=== PATIENT | female | born 1985 ===

== ENCOUNTER 2025-02-18 12:16 | Inpatient (IN) | payer OTHER, SELFPAY ==
--- NOTE | 2025-02-18 12:42 | ED.GENADULT ---
HPI - General Adult General Chief complaint: Psychiatric Symptoms Stated complaint: SI DEPRESSION (PSYCHIATRIC OFFICE) Time Seen by Provider: 02/18/25 12:39 Source: patient and EMS Mode of arrival: EMS Limitations: no limitations History of Present Illness ED Provider: Lou Morales PA-C HPI narrative: Patient is a 39 year old assigned female at with a history of depression presenting to the emergency department today with suicidal ideation. Patient states that she has felt more suicidal as of lately with no plan. Patient denies any dizziness, lightheadedness, abdominal pain, nausea, vomiting, fever, chills, blurry vision, double vision, loss of vision, chest pain, difficulty breathing, shortness of breath, back pain, night sweats, pain with urination, increased urinary frequency, increased urinary urgency, blood in her urine or stool, syncope or a near syncopal episode, recent trauma or falls, bowel incontinence, bladder incontinence, or any other complaints at this time. Relieving factors: none Exacerbating factors: none Associated symptoms: denies other symptoms Treatments prior to arrival: none Related Data Home Medications ?Medication ?Instructions ?Recorded ?Confirmed alprazolam 0.5 mg tablet 0.5 mg PO DAILY PRN Anxiety 02/18/25 02/18/25 fluoxetine 20 mg capsule 80 mg PO DAILY 02/18/25 02/18/25 spironolactone 100 mg tablet 100 mg PO DAILY 02/18/25 02/18/25 Allergies Allergy/AdvReac Type Severity Reaction Status Date / Time No Known Allergies Allergy Verified 02/18/25 12:56 Review of Systems Constitutional: Constitutional: Reports no additional constitutional complaints, Denies chills, Denies fever(s) and Denies night sweats Eyes: Eyes: Reports no additional eye complaints, Denies blurry vision, Denies change in vision, Denies diplopia, Denies eye discharge, Denies loss of vision and Denies eye pain ENT: Denies dizziness Cardiovascular: Cardiovascular: Reports no additional cardiovascular complaints, Denies chest pain, Denies lightheadedness, Denies Loss of Consciousness and Denies dyspnea Respiratory: Respiratory: Reports no additional respiratory complaints and Denies dyspnea Gastrointestinal: Gastrointestinal: Reports no additional gastrointestinal complaints, Denies abdominal pain, Denies melena, Denies hematochezia, Denies change in bowel habits and Denies change in stool character Genitourinary: Genitourinary: Denies hematuria, Denies urinary frequency, Denies dysuria, Denies urinary incontinence, Denies urinary hesitancy and Denies urinary urgency Musculoskeletal: Musculoskeletal: Reports no additional musculoskeletal complaints, Denies numbness and Denies tingling Neurologic: Denies dizziness, Denies loss of vision, Denies numbness and Denies tingling Psychiatric: Psychiatric: Reports no additional psychiatric complaints, Denies homicidal ideation and Reports suicidal ideation Endocrine: Endocrine: Reports no additional endocrine complaints Hematologic/Lymphatic: Hematologic/Lymphatic: Reports no additional hematologic/lymphatic complaints Allergic/Immunologic: Allergic/Immunologic: Reports no additional allergic/immunologic complaints PMFSH Past Medical History Attestation statement: The following information was validated with the patient. Source: old records reviewed and nursing notes reviewed Social History Social History Household Members: Spouse and Children Household Members Other:: Daughter Housing: House Do you presently have visiting nurse or other home services: No Alcohol intake: current Alcohol intake frequency: a few times a month Alcohol type: beer and hard liquor Patient Tobacco Use Status: Never used Tobacco Smoked in Last 30 Days: No Use of substances other than those prescribed or required for medical reasons: No Currently Displaying Signs/Symptoms of Drug Intoxication Withdrawal: No Have you been hit, kicked, punched, or otherwise hurt by someone within the past year? If so, by whom?: No Do you feel safe in your current relationship?: Yes Is there a partner from a previous relationship who is making you feel unsafe now?: No Are you made to feel afraid or neglected: No Advance Directives: No Advance Directives Information Provided: Yes Do you have thoughts of harming others: None Do you have a plan to hurt others: No Plan Recently lost weight without trying: No Eating poorly because of decreased appetite: No Nutrition Risks: No Nutritional Risk Patient : No : No Poor oral hygiene: No Physical Exam ED Vital Signs: Vital Signs - 24 hr 02/18/25 12:43 02/18/25 12:57 Temperature 98.4 F Pulse Rate 66 Respiratory Rate 16 16 Blood Pressure 117/69 Pulse Oximetry 99 Oxygen Delivery Method Room Air BMI result Body Mass Index 22.6 Const General: cooperative, no acute distress, alert and awake Nutritional Appearance: well nourished Orientation/consciousness: patient oriented x3 HENMT Head: Yes normal to inspection and Yes atraumatic Ears: hearing grossly normal bilaterally and external ears normal General nose exam: Normal external nose present, no nasal discharge noted and no epistaxis Face and sinus: Yes normal facial exam, No abrasion and No laceration Mouth: Normal oral and palatal mucosa present, no drooling and no muffled voice Eyes General: appearance normal, both eyes and all related structures Periorbital: periorbital findings normal Eyelids: Yes eyelids normal Conjunctivae: conjunctivae normal Pupils: Equal, round and reactive pupils present EOM: EOMs intact bilaterally Neck Neck: Yes normal visual inspection, Yes full ROM and Yes no lymphadenopathy Resp Effort & Inspection: normal respiratory effort and able to speak in complete sentences Neuro General: patient oriented x3, moves all extremities and CN's II-XI intact bilaterally Cranial nerves: Yes Equal, round and reactive pupils present Cognition (Neuro): normal cognition Extrem General: Yes normal to inspection, Yes full ROM and Yes capillary refill normal Psych Appearance: grossly normal Mental Status: mental status grossly normal Affect: normal affect Attitude: Guarded attititude/behavior present Thought content: Suicidality present Medications Administered Generic Name Dose Route Start Last Admin Trade Name Freq PRN Reason Stop Dose Admin Alprazolam 0.5 mg 02/19/25 12:35 02/19/25 21:23 Alprazolam 0.5 Mg Tablet PO 0.5 mg BID PRN Administration Anxiety Fluoxetine HCl 80 mg 02/19/25 09:00 02/21/25 08:33 Fluoxetine Hcl 20 Mg Capsule PO 80 mg DAILY BLAKE Administration Lamotrigine 25 mg 02/19/25 12:35 02/21/25 08:33 Lamotrigine 25 Mg Tablet PO 25 mg DAILY BLAKE Administration Spironolactone 100 mg 02/19/25 09:00 02/21/25 08:32 Spironolactone 25 Mg Tablet PO 100 mg DAILY BLAKE Administration Protocol Trazodone HCl 50 mg 02/18/25 20:02 02/20/25 23:30 Trazodone Hcl 50 Mg Tablet PO 50 mg BEDTIME [id number] PRN Administration Insomnia Discontinued Medications Generic Name Dose Route Start Last Admin Trade Name Freq PRN Reason Stop Dose Admin Alprazolam 0.5 mg 02/18/25 17:44 02/19/25 05:48 Alprazolam 0.5 Mg Tablet PO 0.5 mg DAILY PRN Administration Anxiety Lorazepam 1 mg 02/18/25 17:44 02/18/25 17:48 Lorazepam 1 Mg Tablet PO 02/18/25 17:45 1 mg ONCE ONE Administration Medical Decision Making Medical Decision Making [facility] Narrative: Patient is a 39 year old assigned female at with a history of depression presenting to the emergency department today with suicidal ideation. Patient's physical exam was as noted in the physical exam portion of this note. Patient's blood work was unremarkable. I explained my physical exam findings as well as all test results to the patient. I answered all questions asked by the patient. Patient remains in observation pending CARE team evaluation. Patient's disposition will be determined after CARE team evaluation. Differential Diagnosis Differential Diagnoses: The differential diagnosis associated with the presentation includes Depression suicidal ideation Admission/Observation Consideration of admission/observation: Escalation of care including admission/observation considered Patient's disposition will be determined after CARE team evaluation. Lab Data [facility] Lab Attestation statement: I reviewed the patient's lab results. My interpretation of these results are in the MDM Rationale portion of this note. 02/18/25 12:58 02/20/25 07:08 Labs: Lab Results 02/18/25 02/18/25 02/18/25 Range/Units 12:58 14:17 14:18 WBC 6.0 (4.8-10.8) X10*3/uL RBC 4.03 L (4.20-5.50) X10*6/uL Hgb 12.7 (12.0-16.0) g/dl Hct 36.7 L (37.0-47.0) % MCV 91.1 (80.0-98.0) fL MCH 31.5 (27.0-33.0) pg MCHC 34.6 (31.0-35.0) g/dl RDW 13.0 (11.0-16.0) % Plt Count 266 (160-400) X10*3/uL MPV 9.3 L (9.4-12.3) fL Immature Gran % (Auto) 0.5 H (0.0-0.4) % Neut % (Auto) 77.4 H (45-73) % Lymph % (Auto) 16.1 L (20-40) % [place] % (Auto) 5.5 (2-11) % Eos % (Auto) 0.0 (0-4) % Baso % (Auto) 0.5 (0-2) % Lymph # (Auto) 1.0 L (1.2-4.9) X10*3/uL [place] # (Auto) 0.3 (0.1-1.2) X10*3/uL Eos # (Auto) 0.0 (0.0-0.4) X10*3/uL Baso # (Auto) 0.0 (0.0-0.2) X10*3/uL Abs Immat Gran (auto) 0.03 (0.00-0.03) X10*3/uL Absolute Neuts (auto) 4.7 (2.0-8.3) x10*3/uL Absolute Nucleated RBC 0.000 (0.0-0.012) X10*3/uL Nucleated RBC % (auto) 0.0 (0.0-0.2) /100WBC Sodium 138 (135-145) mmol/L Potassium 4.1 (3.3-5.1) mmol/L Chloride 105 (96-108) mmol/L Carbon Dioxide 26 (22-29) mmol/L Anion Gap 11 L (12-20) BUN 8 L (9-16) mg/dL Creatinine 0.71 (0.5-1.4) mg/dL Estim Creat Clear Calc 104.5 Estimated GFR > 60 Random Glucose 109 (60-115) mg/dL Calcium 9.5 (8.4-10.2) mg/dL Total Bilirubin 0.7 (0.0-1.0) mg/dL AST 25 (5-31) U/L ALT 34 H (0-31) U/L Alkaline Phosphatase 57 (39-117) U/L Total Protein 7.1 (6.5-8.0) g/dL Albumin 4.6 (3.5-5.0) g/dL Urine Color Yellow Urine Appearance Clear Urine pH >= 9.0 (5.0-9.0) Ur Specific [place] 1.010 (1.005-1.025) Urine Protein Negative (Neg-Trace) mg/dL Urine Glucose (UA) Negative (Negative) mg/dL Urine Ketones Negative (Negative) mg/dL Urine Blood Negative (Negative) Urine Nitrite Negative (Negative) Ur Leukocyte Esterase Large (3+) H (Negative) Urine RBC 0-2 (0-2) /HPF Urine WBC 6-10 H (0-5) /HPF Ur Squamous Epith Cells 6-10 (0-2) /HPF Urine Bacteria 3+ (None Seen) Hyaline Casts 0-2 (0-2) /LPF Urine Test NEGATIVE (NEGATIVE) Urine Opiates Screen Not Detected (Not Detect) Ur Buprenorphine Scrn Not Detected (Not Detect) ng/mL Ur Oxycodone Screen Not Detected (Not Detect) ng/mL Urine Methadone Screen Not Detected (Not Detect) ng/mL Urine Fentanyl Screen Not Detected (Not Detect) Ur Barbiturates Screen Not Detected (Not Detect) Ur Phencyclidine Scrn Not Detected (Not Detect) Ur Amphetamines Screen Not Detected (Not Detect) U Benzodiazepines Scrn Not Detected (Not Detect) Urine Cocaine Screen Not Detected (Not Detect) U Marijuana (THC) Screen Not Detected (Not Detect) Ethyl Alcohol < 10 mg/dL Independent Historian Clinical information obtained from an independent historian. History obtained from or confirmed by: EMS (EMS provided additional history and confirmed the history provided by the patient. ) Discharge Plan Discharge Clinical Impression: Suicidal ideation Patient Disposition: Admitted As Inpatient Interventions: Admission Worksheet (ED) Last Done: 02/18/25 20:28 Discharge Date/Time: 02/18/25 21:33
[2025-02-18 12:43] VITALS: BP 116/78; BP 117/69; PULSE 66; PULSE 82; RESP 16; TEMP 36.9; O2SAT 100; O2SAT 99; BMI 22.6
[2025-02-18 12:57] VITALS: RESP 16
--- NOTE | 2025-02-18 13:00 | PC.NURSE ---
Mirella presents to the ED today from her providers office (Tierney Piña MD) after reporting increasing suicidal ideation over the past few months, particularly severe the past week. Pt reports that over the past few months she has been having increasing depressive episodes that have now led to suicidal ideation without a plan. Pt reports that she went out drinking socially with friends on Friday night and on she had severe suicidal and negative thoughts people will be better off if I am not here I am a burden to everyone . Pt denies having a plan to harm herself and denies a history of suicide attempts. 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 Pt reports she has minimal support in the community, citing that when she reached out to her father for help he stated that he was unavailable as he was playing golf today. Her provider also shared with this RN that the patient's mother also stated that she could not help her (the patient) as she was having dinner with her sister and had prior plans. Pt does have support from her and cites him as a good person to lean on in times of need although she feels bad placing a strain on him. Pt denies drug use, endorses recent alcohol binges which seem to trigger worsening suicidal thoughts. Pt is calm and cooperative, tearful at times. Aware of plan of care for medical clearance and CARE team evaluation
[2025-02-18 13:04] LABS: MANUAL DIFF FLAG NO
[2025-02-18 13:05] LABS: Hematocrit 36.7 % (37.0-47.0); Hemoglobin 12.7 g/dl (12.0-16.0); Imm Gran Abs Auto 0.03 X10*3/uL (0.00-0.03); Imm Gran Pct Auto 0.5 % (0.0-0.4); Lymphocytes Absolute Auto 1.0 X10*3/uL (1.2-4.9); Mean Corpuscular HGB Conc 34.6 g/dl (31.0-35.0); Mean Corpuscular Hemoglobin 31.5 pg (27.0-33.0); Mean Corpuscular Volume 91.1 fL (80.0-98.0); NRBC Abs Auto 0.000 X10*3/uL (0.0-0.012); NRBC Pct Auto 0.0 /100WBC (0.0-0.2); Platelet Count 266 X10*3/uL (160-400); Red Blood Count 4.03 X10*6/uL (4.20-5.50); White Blood Count 6.0 X10*3/uL (4.8-10.8)
--- NOTE | 2025-02-18 13:19 | MHC.EDTECH ---
Urine cup at bedside, patient aware that sample is needed. Patient oriented to the pod bathroom location, unable to provide sample at this time.
[2025-02-18 13:25] LABS: Alanine Aminotransferase 34 U/L (0-31); Albumin Level 4.6 g/dL (3.5-5.0); Alkaline Phosphatase 57 U/L (39-117); Anion Gap 11 (12-20); Aspartate Amino Transferase 25 U/L (5-31); Blood Urea Nitrogen 8 mg/dL (9-16); Calcium 9.5 mg/dL (8.4-10.2); Carbon Dioxide 26 mmol/L (22-29); Chloride 105 mmol/L (96-108); Creatinine Clr Calc Pharmacy 104.5; Estimated Glomerular Filt Rate > 60; Potassium 4.1 mmol/L (3.3-5.1); Sodium 138 mmol/L (135-145); Total Protein 7.1 g/dL (6.5-8.0)
[2025-02-18 14:36] LABS: Appearance Urine Clear; Glucose Urine UA Negative (Negative); PH >= 9.0 (5.0-9.0); Specific Gravity - Urine 1.010 (1.005-1.025); UMIC TRIGGER UACC YES
[2025-02-18 14:37] LABS: UPreg QC Valid YES
[2025-02-18 14:41] LABS: UACC Culture Trigger YES
[2025-02-18 14:44] LABS: Cannabinoid Screen Urine Not Detected (Not Detect)
--- OUTSIDE RECORDS SUMMARY | 2025-02-18 14:58 | XMS_ITS | Data Portability ---
Author Organization [facility], Main Office Address [address] [facility] [address] [place] [address] Care Team Providers Care Fisher Lampara Net Name Role Phone GWEN CAIN Primary Care Provider DENICE BANKS Senior Marketing Data Analyst KARINA HANSON [employer]mer [phone] ANN URENA Psychiatrist Assessment Encounter Date Assessment Date Assessment LastModified by Organization Details LastModified Time 04/25/2023 04/25/2023 This service was provided using telemedicine. Patient consented to video & audio visit Patient was located in the [facility]. Provider was located in the office. No other persons participated in the telemedicine visit except for the patient unless otherwise indicated here. Total time of visit was 10 minutes. [email or web address] Not available 04/28/2023 14:54:12 01/12/2024 01/12/2024 This service was provided using telemedicine. Patient consented to video & audio visit Patient was located in the [facility]. Provider was located in the office. No other persons participated in the telemedicine visit except for the patient unless otherwise indicated here. Total time of visit was 25 minutes. Not available 01/12/2024 10:38:12 07/26/2024 07/26/2024 This service was provided using telemedicine. Patient consented to video & audio visit Patient was located in the [facility]. Provider was located in the office. No other persons participated in the telemedicine visit except for the patient unless otherwise indicated here. Total time of visit was 22 minutes. Not available 07/26/2024 15:10:36 Plan of Treatment Reminders Order Date Submit Date Provider Last Modified By Organization Details Last Modified Time Details Appointments None recorded. Lab urinalysis complete, reflex culture 2023 [email or web address] 1 [facility], [address], [place], [address], 11:32:05 lipid panel, serum 2023 JULIO C [facility] (Centralized Electronic Ordering - All Locations), Patient Can Go To The Location Of Their Choice, 06:08:39 CMP, serum or plasma 2023 JULIO C [facility] (Centralized Electronic Ordering - All Locations), Patient Can Go To The Location Of Their Choice, 06:08:38 CBC w/ auto diff 2023 JULIO C [facility] (Centralized Electronic Ordering - All Locations), Patient Can Go To The Location Of Their Choice, 06:08:37 TSH, ultra-sensi tive, serum 2023 JULIO C [facility] (Centralized Electronic Ordering - All Locations), Patient Can Go To The Location Of Their Choice, 06:08:40 vitamin D, 25-hydroxy, total, serum 2023 JULIO C [facility] (Centralized Electronic Ordering - All Locations), Patient Can Go To The Location Of Their Choice, 06:08:39 Referral gastroenter ologist referral - IBS-C 2023 024 [email or web address] Virginia White MD, [address] [facility] [facility] [address], [place], [address], 10:34:51 Procedures None recorded. Surgeries None recorded. Imaging None recorded. Medication Orders Macrobid 100 mg capsule 2023 024 [facility][id number], [address] [facility], [place], [place], [id number], 12/02/202 4 15:11:10 Pyridium 200 mg tablet 2023 024 [facility] #[id number], [address] [place], [place], [id number], 4 15:11:24 alprazolam 0.5 mg tablet 2023 024 [facility] #26056, [address] [place], [place], [id number], 4 10:40:05 doxycycline hyclate 100 mg capsule 2022 023 [facility], [address] [place], [place], [id number], 3 12:36:30 Patient TargetsNo targets recorded. Patient Instructions Encounter Date Encounter Id Patient Instructions Last Modified By Organization Details Last Modified Time 03/26/2023 [id number] depression treatment: care instructions Not available 03/26/2023 10:20:07 anxiety disorder: care instructions Not available 03/26/2023 10:19:58 04/25/2023 [id number] Acute Sinusitis: Care Instructions [email or web address] Not available 04/25/2023 16:02:28 01/12/2024 [id number] anxiety disorder: care instructions Not available 01/12/2024 10:39:51 05/24/2024 [id number] high cholesterol: care instructions Not available 05/24/2024 09:54:03 07/26/2024 [id number] Urinary Tract Infection (UTI) in Women: Care Instructions Not available 07/26/2024 15:11:02 Reason for Referral Doctor Assistant Referral for Irritable bowel syndrome characterized by constipation IBS-C Referring Physician: Gwen Cain, Internal Medicine, Encounter Date: 05/24/2024 Results Created Date Observation Date Name Description Value Unit Range Abnormal Flag Note LastModifiedBy Organization Detail LastModifiedTime 08/11/20 24 08/11/2024 CBC WITH DIFFE RENTI AL/PL ATELE T WBC 7.7 x10e3 /uL 3.4-10 .8 normal Not Available [facility] ([facility]) [address] [place], [address], 08/12/2024 06:08:37 08/11/20 24 08/11/2024 CBC WITH DIFFE RENTI AL/PL ATELE T RBC 4.19 x10e6 /uL 3.77-5 .28 normal Not Available [facility] ([facility]) [address] [place], [address], 08/12/2024 06:08:37 08/11/20 24 08/11/2024 CBC WITH DIFFE RENTI AL/PL ATELE T hemoglobin 13.5 g/dL 11.1-1 5.9 normal Not Available [facility] ([facility]) [address] [place], [address], 08/12/2024 06:08:37 08/11/20 24 08/11/2024 CBC WITH DIFFE RENTI AL/PL ATELE T hematocrit 40.3 % 34.0-4 6.6 normal Not Available [facility] ([facility]) [address] [place], [address], 08/12/2024 06:08:37 08/11/20 24 08/11/2024 CBC WITH DIFFE RENTI AL/PL ATELE T MCV 96 fL 79-97 normal Not Available [facility] ([facility]) [address] [place], [address], 08/12/2024 06:08:37 08/11/20 24 08/11/2024 CBC WITH DIFFE RENTI AL/PL ATELE T MCH 32.2 pg 26.6-3 3.0 normal Not Available [facility] ([facility]) [address] [place] [address], [address], 08/12/2024 06:08:37 08/11/20 24 08/11/2024 CBC WITH DIFFE RENTI AL/PL ATELE T MCHC 33.5 g/dL 31.5-3 5.7 normal Not Available [facility] ([facility]) [address] [place], [address], 08/12/2024 06:08:37 08/11/20 24 08/11/2024 CBC WITH DIFFE RENTI AL/PL ATELE T RDW 12.1 % 11.7-1 5.4 Not Available [facility] ([facility]) [address] [facility], [place], [address], 08/12/2024 06:08:37 08/11/20 24 08/11/2024 CBC WITH DIFFE RENTI AL/PL ATELE T platelets 275 x10e3 /uL 150-45 0 normal Not Available [facility] ([facility]) [address] [place], [address], 08/12/2024 06:08:37 08/11/20 24 08/11/2024 CBC WITH DIFFE RENTI AL/PL ATELE T neutrophils 74 % not estab. normal Not Available [facility] ([facility]) [address] [facility], [place], [address], 08/12/2024 06:08:37 08/11/20 24 08/11/2024 CBC WITH DIFFE RENTI AL/PL ATELE T lymphs 17 % not estab. normal Not Available [facility] ([facility]) [address] [place], [address], 08/12/2024 06:08:37 08/11/20 24 08/11/2024 CBC WITH DIFFE RENTI AL/PL ATELE T monocytes 7 % not estab. normal Not Available [facility] ([facility]) [address] [place], [address], 08/12/2024 06:08:37 08/11/20 24 08/11/2024 CBC WITH DIFFE RENTI AL/PL ATELE T eos 1 % not estab. normal Not Available [facility] ([facility]) [address] [place], [address], 08/12/2024 06:08:37 08/11/20 24 08/11/2024 CBC WITH DIFFE RENTI AL/PL ATELE T basos 1 % not estab. normal Not Available [facility] ([facility]) [address] [facility], [place], [address], 08/12/2024 06:08:37 08/11/20 24 08/11/2024 CBC WITH DIFFE RENTI AL/PL ATELE T immature cells HEEL SLUGGER Not Available [facility] ([facility]) [address] [place], [address], 08/12/2024 06:08:37 08/11/20 24 08/11/2024 CBC WITH DIFFE RENTI AL/PL ATELE T neutrophils (absolute) 5.7 x10e3 /uL 1.4-7. 0 normal Not Available [facility] ([facility]) [address] [place], [address], 08/12/2024 06:08:37 08/11/20 24 08/11/2024 CBC WITH DIFFE RENTI AL/PL ATELE T lymphs (absolute) 1.3 x10e3 /uL 0.7-3. 1 normal Not Available [facility] ([facility]) [address] [place], [address], 08/12/2024 06:08:37 08/11/20 24 08/11/2024 CBC WITH DIFFE RENTI AL/PL ATELE T monocytes(ab solute) 0.6 x10e3 /uL 0.1-0. 9 normal Not Available [facility] ([facility]) [address] [place], [address], 08/12/2024 06:08:37 08/11/20 24 08/11/2024 CBC WITH DIFFE RENTI AL/PL ATELE T eos (absolute) 0.0 x10e3 /uL 0.0-0. 4 normal Not Available [facility] ([facility]) [address] [facility], [place], [address], 08/12/2024 06:08:37 08/11/20 24 08/11/2024 CBC WITH DIFFE RENTI AL/PL ATELE T baso (absolute) 0.0 x10e3 /uL 0.0-0. 2 normal Not Available [facility] ([facility]) [address] [facility], [place], [address], 08/12/2024 06:08:37 08/11/20 24 08/11/2024 CBC WITH DIFFE RENTI AL/PL ATELE T immature granulocytes 0 % not estab. Not Available [facility] ([facility]) [address] [facility], [place], [address], 08/12/2024 06:08:37 08/11/20 24 08/11/2024 CBC WITH DIFFE RENTI AL/PL ATELE T immature grans (abs) 0.0 x10e3 /uL 0.0-0. 1 Not Available [facility] ([facility]) [address] [place], [address], 08/12/2024 06:08:37 08/11/20 24 08/11/2024 CBC WITH DIFFE RENTI AL/PL ATELE T NRBC HEEL SLUGGER Not Available [facility] ([facility]) [address] [place], [address], 08/12/2024 06:08:37 08/11/20 24 08/11/2024 CBC WITH DIFFE RENTI AL/PL ATELE T hematology comments: HEEL SLUGGER Not Available [facility] ([facility]) [address] [place], [address], 08/12/2024 06:08:37 08/11/20 24 08/12/2024 COMP. METAB OLIC PANEL (14) glucose 98 mg/dL 70-99 normal Not Available [facility] ([facility]) [address], [place], [address], 08/12/2024 06:08:38 08/11/20 24 08/12/2024 COMP. METAB OLIC PANEL (14) BUN 11 mg/dL 6-20 normal Not Available [facility] ([facility]) [address] [place], [address], 08/12/2024 06:08:38 08/11/20 24 08/12/2024 COMP. METAB OLIC PANEL (14) creatinine 0.82 mg/dL 0.57-1 .00 normal Not Available [facility] ([facility]) [address] [place], [address], 08/12/2024 06:08:38 08/11/20 24 08/12/2024 COMP. METAB OLIC PANEL (14) eGFR 94 mL/mi n/1.7 3 >59 normal Not Available [facility] ([facility]) [address], [place], [address], 08/12/2024 06:08:38 08/11/20 24 08/12/2024 COMP. METAB OLIC PANEL (14) BUN/creatini ne ratio 13 9-23 normal Not Available [facility] ([facility]) [address] [facility] [place] [place], [address], 08/12/2024 06:08:38 08/11/20 24 08/12/2024 COMP. METAB OLIC PANEL (14) sodium 138 mmol/ L 134-14 4 normal Not Available [facility] ([facility]) [address] [facility] [place] [place], [address], 08/12/2024 06:08:38 08/11/20 24 08/12/2024 COMP. METAB OLIC PANEL (14) potassium 4.1 mmol/ L 3.5-5. 2 normal Not Available [facility] ([facility]) [address] [place], [address], 08/12/2024 06:08:38 08/11/20 24 08/12/2024 COMP. METAB OLIC PANEL (14) chloride 101 mmol/ L 96-106 normal Not Available [facility] ([facility]) [address] [place], [address], 08/12/2024 06:08:38 08/11/20 24 08/12/2024 COMP. METAB OLIC PANEL (14) carbon dioxide, total 24 mmol/ L 20-29 normal Not Available [facility] ([facility]) [address] [place], [address], 08/12/2024 06:08:38 08/11/20 24 08/12/2024 COMP. METAB OLIC PANEL (14) calcium 9.4 mg/dL 8.7-10 .2 normal Not Available [facility] ([facility] [address] [facility] [place], [address], 08/12/2024 06:08:38 08/11/20 24 08/12/2024 COMP. METAB OLIC PANEL (14) protein, total 7.2 g/dL 6.0-8. 5 normal Not Available [facility] ([facility]) [address] [facility] [place] [place], [address], 08/12/2024 06:08:38 08/11/20 24 08/12/2024 COMP. METAB OLIC PANEL (14) albumin 4.7 g/dL 3.9-4. 9 normal Not Available [facility] ([facility] [address] [facility] [place], [address], 08/12/2024 06:08:38 08/11/20 24 08/12/2024 COMP. METAB OLIC PANEL (14) globulin, total 2.5 g/dL 1.5-4. 5 Not Available [facility] ([facility]) [address] [facility] [place] [place], [address], 08/12/2024 06:08:38 08/11/20 24 08/12/2024 COMP. METAB OLIC PANEL (14) bilirubin, total 0.3 mg/dL 0.0-1. 2 normal Not Available [facility] ([facility]) [address] [place], [address], 08/12/2024 06:08:38 08/11/20 24 08/12/2024 COMP. METAB OLIC PANEL (14) alkaline phosphatase 74 IU/L 44-121 normal Not Available [facility] ([facility]) [address] [place], [address], 08/12/2024 06:08:38 08/11/20 24 08/12/2024 COMP. METAB OLIC PANEL (14) AST (SGOT) 19 IU/L 0-40 normal Not Available [facility] ([facility]) [address] [place], [address], 08/12/2024 06:08:38 08/11/20 24 08/12/2024 COMP. METAB OLIC PANEL (14) ALT (SGPT) 24 IU/L 0-32 normal Not Available [facility] ([facility]) [address] [place], [address], 08/12/2024 06:08:38 08/11/20 24 08/12/2024 LIPID PANEL cholesterol, total 216 mg/dL 100-19 9 above high normal Not Available [facility] ([facility]) [address] [place], [address], 08/12/2024 06:08:39 08/11/20 24 08/12/2024 LIPID PANEL triglyceride s 41 mg/dL 0-149 normal Not Available [facility] ([facility]) [address] [place], [address], 08/12/2024 06:08:39 08/11/20 24 08/12/2024 LIPID PANEL HDL cholesterol 89 mg/dL >39 normal Not Available [facility] ([facility]) [address] [facility], [place], [address], 08/12/2024 06:08:39 08/11/20 24 08/12/2024 LIPID PANEL VLDL cholesterol ethan 7 mg/dL 5-40 Not Available [facility] ([facility]) [address] [facility], [place], [address], 08/12/2024 06:08:39 08/11/20 24 08/12/2024 LIPID PANEL LDL chol calc ([facility]) 120 mg/dL 0-99 above high normal Not Available [facility] ([facility]) [address] [facility], [place], [address], 08/12/2024 06:08:39 08/11/20 24 08/12/2024 LIPID PANEL LDL calc comment: HEEL SLUGGER Not Available [facility] ([facility]) [address] [facility], [place], [address], 08/12/2024 06:08:39 08/11/20 24 08/12/2024 VITAM IN D, 25-HY DROXY vitamin D, 25-hydroxy 26.3 NG/mL 30.0-1 00.0 below low normal Vitam in D defic iency has been defin ed by the Insti tute of Medic ine and an Endoc rine Socie ty pract ice guide line as a level of serum 25-OH vitam in D less than 20 ng/mL (1,2) . The Endoc rine Socie ty went [facility] er defin e vitam in D insuf ficie ncy as a level betwe en 21 and 29 ng/mL (2). 1. IOM (Inst itute of Medic ine). 2009. Dieta ry refer ence intcleopatra es for calci um and D. Zuleyka lu [place]: The Natio nal [facility] Press . 2. Monique drummond MF, John ey [place], Biskathy off-F errar i LUNA, et al. Evalu ation , treat ment, and preve ntion of vitam in D defic iency : an Endoc rine Socie ty clini ethan pract ice guide line. JCEM. 2010; 96(6) :1911 -30. Not Available [facility] ([facility]) [address] [facility], [place], [address], 08/12/2024 06:08:39 08/11/20 24 08/12/2024 TSH RFX ON ABNOR MAL TO FREE T4 TSH 1.410 uIU/m L 0.450- 4.500 normal Not Available [facility] ([facility]) [address] [facility], [place], [address], 08/12/2024 06:08:40 08/11/20 24 08/12/2024 UA WITH CULTU RE REFLE X specific gravity 1.011 1.005- 1.030 normal Not Available [facility] ([facility]) [address] [facility], [place], [address], 08/12/2024 12:05:54 08/11/20 24 08/12/2024 UA WITH CULTU RE REFLE X pH 7.0 5.0-7. 5 normal Not Available [facility] ([facility]) [address] [facility], [place], [address], 08/12/2024 12:05:54 08/11/20 24 08/12/2024 UA WITH CULTU RE REFLE X urine-color Yellow yellow Not Available [facility] ([facility]) [address] [facility], [place], [address], 08/12/2024 12:05:54 08/11/20 24 08/12/2024 UA WITH CULTU RE REFLE X appearance Clear clear Not Available [facility] ([facility]) [address] [place], [address], 08/12/2024 12:05:54 08/11/20 24 08/12/2024 UA WITH CULTU RE REFLE X WBC esterase Negati ve negati ve Not Available [facility] ([facility]) [address] [facility] [place], [address], 08/12/2024 12:05:54 08/11/20 24 08/12/2024 UA WITH CULTU RE REFLE X protein Negati ve negati ve/tra ce Not Available [facility] ([facility]) [address] [facility], [place], [address], 08/12/2024 12:05:54 08/11/20 24 08/12/2024 UA WITH CULTU RE REFLE X glucose Negati ve negati ve Not Available [facility] ([facility]) [address] [facility], [place], [address], 08/12/2024 12:05:54 08/11/20 24 08/12/2024 UA WITH CULTU RE REFLE X ketones Negati ve negati ve Not Available [facility] ([facility]) [address] [facility], [place], [address], 08/12/2024 12:05:54 08/11/20 24 08/12/2024 UA WITH CULTU RE REFLE X occult blood Negati ve negati ve Not Available [facility] ([facility]) [address] [facility], [place], [address], 08/12/2024 12:05:54 08/11/20 24 08/12/2024 UA WITH CULTU RE REFLE X bilirubin Negati ve negati ve Not Available [facility] ([facility]) [address] [facility], [place], [address], 08/12/2024 12:05:54 08/11/20 24 08/12/2024 UA WITH CULTU RE REFLE X urobilinogen ,semi-qn 0.2 mg/dL 0.2-1. 0 normal Not Available [facility] ([facility]) [address] [place], [address], 08/12/2024 12:05:54 08/11/20 24 08/12/2024 UA WITH CULTU RE REFLE X nitrite, urine Negati ve negati ve Not Available [facility] ([facility]) [address] [facility], [place], [address], 08/12/2024 12:05:54 08/11/20 24 08/12/2024 UA WITH CULTU RE REFLE X microscopic examination Commen t Micro scopi c not indic ated and not perfo rmed. Not Available [facility] ([facility]) [address] [facility], [place], [address], 08/12/2024 12:05:54 08/11/20 24 08/12/2024 UA WITH CULTU RE REFLE X urinalysis reflex Commen t This speci men will not refle x to a Urine Cultu re. Not Available [facility] ([facility]) [address] [facility], [place], [address], 08/12/2024 12:05:54 Result Notes None recorded. Problems Name Problem SNOMED Code Status Onset Date Resolution Date Notes Provider Name and Address Organization Details Recorded Time Elevated blood-pr essure reading without diagnosi s of hyperten edgar 099930956 Completed 202003/06/2021 Gwen Cain PA-C [address] [address], [place], [address], [facility] 09:15:21 Hyperlip idemia 03123903 Completed 202003/06/2021 Gwen Cain PA-C [address] [facility] [address], [place], [address], [facility] 09:14:53 Generali zed anxiety disorder 22180690 Active 2020 Gwen Cain PA-C [address] [facility] [address], [place], [address], [facility] 1 20:02:32 Major depressi ve disorder 236243283 Completed 202003/06/2021 Gwengrace Cain PA-C [address], [place], [address], [facility] 1 09:15:41 Major depressi on single episode, in partial remissio n 07347808 Active 2020 Gwen Cain PA-C [address], [place], [address], [facility] 1 09:16:00 Acne 48354245 Active 2020 sees dermatol ogist and is on spironal actone Gwengrace Cain PA-C [address], [place], [address], [facility] 1 09:59:22 History of SARS-CoV -2 [id number] 4840025 Active 2021 Lidia Norton [place] null, [facility] 2 14:48:40 History of abnormal cervical Papanico laou smear 190484026 Active 2021 Gwen Cain PA-C [address], [place], [address], [facility] 2 15:54:57 Irritabl e bowel syndrome characte rized by constipa tion 220394476 Active 2022 Francisco Cain PA-C [address], [place], [address], [facility] 3 09:54:11 Problem Notes None recorded. Procedures Surgical History Date Name Laterality Status Provider Name and Address Organization Details Recorded Time 03/13/20 22 Date of Last Pap Smear completed Chely Melvin [facility] 03/26/2022 10:30:08 08/26/19 12 Appendectomy completed Eleazar Wynne MA [facility] 03/26/2023 09:40:16 Imaging Results None recorded. Procedure Notes None recorded. Medical Equipment None Reported. Allergies No known drug allergies Medications Name Sig Start Date Stop Date Status Note LastModified by Organization Details LastModified Time Augmentin 875 mg-125 mg tablet Take 1 tablet every 12 hours by oral route for 10 days. 09/09 completed Not Available Not Available Not Available doxycycline hyclate 100 mg capsule Take 1 capsule twice a day by oral route for 10 days. 05/16 completed Not Available Not Available Not Available sertraline 100 mg tablet TAKE 1 TABLET BY MOUTH EVERY DAY 05/13 completed Not Available Not Available Not Available Pyridium 200 mg tablet Take 1 tablet 3 times a day by oral route for 3 days. 2023 active Not Available Not Available Not Avai lable Macrobid 100 mg capsule Take 1 capsule twice a day by oral route for 5 days. 2023 active Not Available Not Available Not Avai lable alprazolam 0.5 mg tablet TAKE 1 TABLET BY MOUTH EVERY DAY NEEDED 2024 active Not Available Not Available Not Avai lable Celexa 20 mg tablet Take 0.5 tablets every day by oral route for 30 days. 05/07 completed Not Available Not Available Not Available Prozac 20 mg capsule Take 4 capsules every day by oral route. active Dr Asuncion christiansen Not Available Not Available Not Available hyoscyamine 0.[address] 1 tablet 3 times a day by sublingua l route as needed for 30 days. 03/26 completed Not Available Not Available Not Available azelastine 137 mcg (0.1 %) nasal spray USE 1 TO 2 SPRAYS IN EACH NOSTRIL TWICE DAILY NEEDED 07/29 completed Not Available Not Available Not Available sertraline 50 mg tablet Take 1 tablet every day by oral route for 30 days. 05/31 completed Not Available Not Available Not Available doxycycline hyclate 100 mg tablet Take 1 tablet twice a day by oral route for 10 days. 01/30 completed Not Available Not Available Not Available Augmentin 500 mg-125 mg tablet Take 1 tablet every 12 hours by oral route for 10 days. 07/29 completed Not Available Not Available Not Available spironolact one 50 mg tablet Take 2 tablets every day by oral route. active Not Available Not Available No t Available spironolact one 50 mgs 1 po bid 03/08 completed Not Available Not Available Not Available Vitals Date Recorded Body height Provider Name an d Address Organization Details Last Updated DateTime 01/12/2024 170.18 cm Lili Ponce MA [facility] 01/12/2024 10:23:06 Date Recorded Body height Body mass index (BMI) Body weight Heart rate Oxygen saturation Oxygen saturation in Arterial blood by Pulse oximetry Body temperature Systolic blood pressure Diastolic blood pressure Provider Name and Address Organization Details Last Updated DateTime 3 170.18 cm 21.8 kg/m2 91258.3 4 g 83 /min 98 % 98 % 98 [degF] 110 mm[Hg] 73 mm[Hg] Eleazar Wynne MA [facility] 3 09:41:15 Date Recorded Body height Provider Name an d Address Organization Details Last Updated DateTime 04/25/2023 170.18 cm Eleazar Wynne MA [facility] 04/25/2023 15:04:50 Date Recorded Body height Body mass index (BMI) Body weight Heart rate Oxygen saturation Oxygen saturation in Arterial blood by Pulse oximetry Body temperature Systolic blood pressure Diastolic blood pressure Provider Name and Address Organization Details Last Updated DateTime 4 170.18 cm 22.9 kg/m2 72707.4 9 g 67 /min 97 % 97 % 98 [degF] 117 mm[Hg] 76 mm[Hg] Chalo jefferson MA [facility] 4 09:10:32 Date Recorded Body height Provider Name an d Address Organization Details Last Updated DateTime 07/26/2024 170.18 cm Brynn Slaughter MA [facility] 07/26/2024 15:01:26 Social History Question Answer Notes LastModified by Organizat ion Details LastModified Time Tobacco Smoking Status Never Smoker ARACELI Moreno [facility] 03/06/2021 08:14:01 Is Blood Transfusion Acceptable In An Emergency? Yes [email or web address] Information not available 03/06/2021 What Is Your Level Of Caffeine Consumption? Moderate [email or web address] Information not available 03/06/2021 How Much Tobacco Do You Chew? None [email or web address] Information not available 03/06/2021 What Type Of Diet Are You Following? REGULAR [email or web address] Information not available 03/06/2021 Live Alone Or With Others? With Others Vinicio,gold lambert Information not available 03/08/2022 Do You Take Precautions To Prevent Distracted Driving? Yes [email or web address] Information not available 03/06/2021 How Often Do You Need To Have Someone Help You When You Read Instructions, Pamphlets, Or Other Written Material From Your Doctor Or Pharmacy? Never [email or web address] Information not available 03/06/2021 Have You Served In The [employer]? No [email or web address] Information not available 03/06/2021 Have You Or Anyone In Your Household Had Any Of The Following Symptoms In The Last 14 Days: Sore Throat, Cough, Chills, Body Aches For Unknown Reasons, Shortness Of Breath For Unknown Reasons, Loss Of Smell, Loss Of Taste, Fever At Or Greater Than 100 Degrees Fahrenheit? No [email or web address] Information not available 03/06/2021 Are You Or Anyone In Your Household A Health Care Provider Or Emergency Responder? No [email or web address] Information not available 03/06/2021 To The Best Of Your Knowledge Have You Been In Close Proximity To Any Individual Who Tested Positive For COVID-19? No [email or web address] Information not available 03/06/2021 Have You Recently Traveled To A COVID-19 High Risk Area Or Gathering In The Last 10 Days? No [email or web address] Information not available 03/06/2021 What Was The Date Of Your Most Recent Tobacco Screening? 05/24/2024 [email or web address] Information not available 05/24/2024 How Many Children Do You Have? 1 [email or web address] Information not available 03/06/2021 Do You Use Protection During Sex? Usually [email or web address] Information not available 03/06/2021 Seat Belts Used Routinely Yes [email or web address] Information not available 03/08/2022 Are You Sexually Active? Yes [email or web address] Information not available 03/06/2021 Smoke Alarm In Home Yes [email or web address] Information not available 03/08/2022 Are You Passively Exposed To Smoke? No [email or web address] Information not available 03/06/2021 How Much Tobacco Do You Smoke? No [email or web address] Information not available 03/06/2021 Do You Use Sunscreen Routinely? Yes [email or web address] Information not available 03/06/2021 How Many Years Have You Smoked Tobacco? 0 [email or web address] Information not available 03/06/2021 Sex: Unknown Functional Status Question Answer Note LastModified by Organizat ion Details LastModified Time What is your level of alcohol consumption? Occasional [email or web address] Information not available 03/06/2021 Do you or have you ever used smokeless tobacco? Never used smokeless tobacco [email or web address] Information not available 03/06/2021 Are you currently employed? Yes [email or web address] Information not available 03/06/2021 Are you able to walk? YESWOREST [email or web address] Information not available 03/08/2022 Are you able to care for yourself? 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 Never used electronic cigarettes Information not available 03/08/2022 What is your exercise level? Occasional [email or web address] Information not available 03/06/2021 Mental Status None recorded. Family History Relationship Description Onset Age of this Age Resolved Age Notes LastModified by Organization Details LastModified Time Paternal Aunt Carcinoma in situ of breast [email or web address] Not available 15:16:35 Father Essential hypertension [email or web address] Not available 03/08/2022 15:16:35 Father Hypertensive disorder [email or web address] Not available 15:16:35 Mother Hypertensive disorder [email or web address] Not available 15:16:35 Mother Anxiety disorder [email or web address] Not available 15:16:35 Sister Substance abuse [email or web address] Not available 15:16:35 Medical History Condition Response Depression Y Acne Y Anxiety Disorder Y Gynecological History Statement/Question Response Date of Last Pap Smear 03/13/2022 Most Recent Mammogram Obstetrics History GPAL:G 0 P 0 0 0 0 Immunizations Vaccine Type Date Status Note Provider Cliff nunez and Address Organization Details Recorded Time Tdap 08/25/2016 completed ARACELI Figueroa [facility] 03/06/2021 08:57:34 COVID-19, mRNA, LNP-S, PF, 30 mcg/0.3 mL dose 04/05/2021 completed ARACELI Hughes [facility] 12/04/2021 14:46:13 Influenza, split virus, quadrivalent, PF 06/27/2021 completed ARACELI Hughes [facility] 12/04/2021 14:46:13 COVID-19, mRNA, LNP-S, PF, 30 mcg/0.3 mL dose 03/15/2021 completed ARACELI Hughes [facility] 12/04/2021 14:46:13 Influenza, split virus, quadrivalent, PF 06/09/2023 completed ARACELI Pride, [facility] 05/24/2024 09:02:55 Influenza, split virus, trivalent, PF 06/09/2024 completed ARACELI Byers, [facility] 07/26/2024 15:01:22 Past Encounters Encounter ID Performer Location Encounter Start Date Encounter Closed Date Diagnosis/Indication Diagnosis SNOMED-CT Code Diagnosis ICD10 Code Diagnosis Note [id number] Gwen Cain PA-C Main Office [address] [facility] [address] [facility] [place] [address] 03/06/2021 08:41:07 03/06/2021 09:46:20 Adult health examination 564496749 Z00.00 Recommend to receive COVID vaccine. We had discussion and pt. although anxious still about possible adverse effects, but not opposed at this point to getting immunized. Generalize d anxiety disorder 20772771 F41.1 continue Major depr ession single episode, in partial remission 34418606 F32.4 Stable on current meds. Continue therapy. Hyperlipidemia 74587431 E78.5 [id number] Gwen Cain PA-C Main Office [address] [facility] [address] [place] [address] 04/04/2021 07:59:59 04/04/2021 10:36:24 Generalized anxiety disorder 77233020 F41.1 I offered pt. to see psychiatri at [facility] for one time consult, but she declined . Wants to try sertraline instead of celexa due to safety in . We will initiate transition to sertraline and start it with 25 mg for the first week along with celexa 20. Week 2: increase zoloft to 50 mg and lower celexa to 10 mg . Week 3: continue zoloft at 50 mg, celexa 10 mg every other day optional for 1 more week. F/u 4 weeks. Continue therapy. We will keep our option open for psych consult if needed along the way. Major depr ession single episode, in partial remission 59420580 F32.4 Stable on current meds. Continue therapy. [id number] [facility] [address] [facility] [address] [facility] [place] [address] 05/07/2021 09:14:47 05/07/2021 15:57:09 Major depression single episode, in partial remission 44979020 F32.4 Stable on current meds. Continue therapy. Generalize d anxiety disorder 17463378 F41.1 Pt. is doing exceptiona lly well on sertraline 50 mg. Recom to continue this dose and alprazolam only prn use if needed. F/u 4 m. [id number] Gianfranco Haider MD [facility] [address] [facility] [address] [place] [address] 12/04/2021 13:08:53 12/05/2021 08:47:08 Counseling 031280957 Z71.9 Health advice, education or counseling done for COVID 19 encouraged pt to check home covid test to r/o -- if negative, could come in to office if need be Nasal congestion 1648297 0 R09.81 + clear nasal dc, persistent x ~ 2 wks - trial c nasal saline spray and / or azelastine no h/o allergies and no sneezing or watery eyes -- so do not believe that flonase would help Acute sinusitis 72273969 J01.90 if above does not improve sxs and / or develop pur nasal d/c, then begin abx as dir (hold off initially to give adequate trial of above) [id number] Jose M Coe MD Main Office [address] [address] [place] [address] 03/08/2022 15:12:57 03/08/2022 15:53:11 Adult health examination 045568708 Z00.00 vaccines are up to date. Generalize d anxiety disorder 19547806 F41.1 Increase in anxiety. Pt. would like to increase sertraline to 150 . Will try for 2 weeks and let me know. Continue biweekly therapy. Major depr ession single episode, in partial remission 79232973 F32.4 Stable on current meds. Continue therapy. Irritable bowel syndrome 01444946 K58.9 stable. Screening for malignant neoplasm of cervix 933477353 Z12.4 h/o abnormal PapSmear. History of abnormal cervical Papanicolaou smear 255692247 Z87.42 f/u with [facility] next week. [id number] Gianfranco Haider MD [facility] [address] [address] [place] [address] 05/13/2022 09:42:45 05/13/2022 14:28:39 Acute maxillary sinusitis 80521421 J01.00 Begin abx as directed for 10 days, sudafed during the day, nasal saline solution or nasal rinse daily, Advil for pain and inflammati on. [id number] Gianfranco Haider MD Main Office [address] [address] [place] [address] 07/29/2022 15:10:47 07/29/2022 16:30:01 Hoarse 02422831 R49.0 likely d/t underlying sinusitis - see below, and rec ns spray often Acute sinusitis 10066069 J01.90 recommend probiotics while on abx [id number] Gianfranco Haider MD Main Office [address] [address] [place] [address] 01/30/2023 09:04:54 01/30/2023 10:11:15 Irritable bowel syndrome characterized by constipation 957387842 K58.1 h/o ibs x ~ 20 yrs, never seen by gi in past, but no fh ibd/crc and no brbprrec colace 1 tab/day as well as probiotic 1 tab/dayals o rec prn hyoscyamin e for breakthrou gh spasm - topher since no help c gas-x/pepc id in pastcheck labs to r/o celiac, etcrtc in 1 month, sooner prn - if no sig improvemen t, then will get gi eval Abdominal pain 22010899 R10.9 Constipation 66884467 K5 9.00 [id number] Jose M Coe MD Main Office [address] [place] [address] 03/26/2023 09:21:08 03/26/2023 10:19:19 Adult health examination 970407109 Z00.00 vaccines are up to date. Generalize d anxiety disorder 47010401 F41.1 Doing very well with meds and therpay biweekly. F/u 1 year. Irritable bowel syndrome characterized by constipation 162142836 K58.1 stable Major depr ession single episode, in partial remission 87720791 F32.4 Stable on current meds. Continue therapy. Screening for malignant neoplasm of cervix 313890192 Z12.4 h/o abnormal PapSmear in the oast. PT. just had [facility] exam w/o PapSmear repeated. . [id number] [facility]anco [facility] [address] [place] [address] 04/25/2023 14:10:08 05/02/2023 10:23:25 Acute sinusitis 73116955 J01.90 Symptoms duration and reported second sickening bacterial process is likely. Will cover with doxy as pt did not tolerate Augmentin well in the past. Call inb/worse or if symptoms return. [id number] Jose M Coe [facility] [address] [address] [place] [address] 01/12/2024 10:13:05 01/12/2024 10:44:52 Generalized anxiety disorder 27065603 F41.1 Doing very well with meds and with therapy once per month. F/u 6 m. Major depr ession single episode, in partial remission 06152190 F32.4 Pt. is doing very well with her current medicaton and therpay once per month. F/u 6 m. [id number] Gianfranco Haider MD Main Office [address] [facility] [address] [facility] [place] [address] 05/24/2024 08:58:28 05/24/2024 10:02:19 Adult health examination 166183024 Z00.00 vaccines are up to date. recom seasonal flu and COVID booster. Major depr ession single episode, in partial remission 02126784 F32.4 Pt. is doing very well with her current medicaton and therapy once per month. F/u 6 m. Generalize d anxiety disorder 75754849 F41.1 Doing very well on meds . F/u 1 year. Hyperlipidemia 70728699 E78.5 Fatigue 09905933 R53.83 Irritable bowel syndrome characterized by constipation 655056579 K58.1 worsening of symptoms . Recom colace 100 mg daily, fiber . Can try Miralax . Referra to the GI. [id number] Gianfranco Haider MD [facility] [address] [facility] [address] [place] [address] 07/26/2024 14:27:25 07/26/2024 15:19:29 Dysuria 61785055 R30.0 SYMPTOMS: burning with urination? yes frequency? yes hematuria? no lower abdominal pain? yes symptoms similar to previous UTI? yes POSSIBLE CONTRAINDI CATIONS TO TELEPHONE TREATMENT: > 65 years of age? no fevers? no recent UTI (within 1 month)? no new low back pain? no nausea or vomiting? no ? no history of interstiti al cystitis? no PROVIDER ACTION: Reviewed nursing notes? Recommende d action Antibiotic treatment Urinary tr act infectious disease 52851123 N39.0 Health Concerns Section Related Observation LastModified by Organization Robert ls LastModified Time None Recorded Concern Status LastModified by Organization Details LastModified Time None Recorded Advance Directives Directive None Recorded Payers Insurance Date Sequence Insurance Name Policy Number Policy Hart Covered Member ID Hart Member ID Guarantor Name 08/04/2024 1 [facility] [id number] Mirella Krishnan [id number] Mirella Krishnan Notes Date Note Type Note Provider Name and Address Organization Details Recorded Time 03/26/2023 text/html Generic HPI TemplateReported bypatient.Notes:37 year old female for annual PE. Last Pap Smear was last year . Pt. has h/o abnormal PapSmear in the past . No prior mammograms or colonoscopy.RICKEY score is low at 1 on Prozac 20 mg and alprazolam prn. PHQ is 0.IBS is stable.Vaccines are up to date.Acne> sees derm yearly. Have been on spironolactone 50 mg for years .Labs reviewed: normal CMP, TSH. Lipids were normal in 2020. Gwen Cain PA-C [address], [address], [facility] 03/26/2023 10:21:14 04/25/2023 text/html Sinusitis/Allerg yRepor josemanuel bypatient.Associated Symptoms:nasal discharge from both nostrils;facial pain bilaterally Onset/Timing:gradual onset Quality:worsening;nestor ested;colored phlegm;productive cough Context:recent upper respiratory infection Risk Factors:no current smoking or tobacco useNotes:Started with URI over 10 days ago. Symptoms started to improve and then worsened a couple of days ago. Gianfranco Haider MD [address] [address], [place], [address], [facility] 04/28/2023 14:55:45 01/12/2024 text/html 38 year old fema le for f/u on generalized anxiety and major depression. PHQ score is 0 and RICKEY is 3 today. Pt. is on Prozac at 20 mg daily dose. For anxiety pt takes alprazolam 0.5 mg on PRN basis. Last prescription was filled over 4 months ago for 20 tablets. Pt. is requesting refill. Takes medication when feels overwhelmed and can not unwind from work. Sleeping well. Gwen Cain PA-C [address] [address], [place], [address], [facility] 01/12/2024 10:40:11 05/24/2024 text/html Generic HPI TemplateReported bypatient.Notes:38 year old female for annual PE. Last Pap Smear was in 2021. Pt. has h/o abnormal PapSmear in the past . No prior mammograms or colonoscopy.RICKEY and PHQ scores are 0. Pt. is on Prozac 60 mg and alprazolam prn.IBS-C reported worsening of symptoms in the last year. Lots of bloating, discomfort radiating to back, constipation. Pt. is trying Colace but just began taking and reports having dietary fiber. NO prior colonoscopy /GI eval. Has h/o IBS for years .Vaccines are up to date except for seasonal .Acne> sees derm yearly. Have been on spironolactone 50 mg for years .Last labs were in 2020. Gwen Cain PA-C [address] [address], [place], [address], [facility] 05/24/2024 10:45:25 07/26/2024 text/html 38 year old fema le c/o urinary frequency and burning since yesterday. Last UTI treated about 6-8 months ago. Pt denies nausea, back pain, fever, or chills. Gwen Cain PA-C [address] [address], [place], [address], [facility] 07/26/2024 15:11:56 OBGyn Episode No OBEpisode recorded.
--- NOTE | 2025-02-18 16:52 | MHC.EDTECH ---
Additional clothing brought in by spouse in red/head canvas bag, as well as a small bottle of hand watershed manager and cell phone problem manager. Items added to patient belongings in locker 6
--- NOTE | 2025-02-18 17:53 | PHA.MEDREC ---
Pharmacy Consult ? Medication Reconciliation Pharmacy has reviewed the medication reconciliation done by nursing.
--- NOTE | 2025-02-18 19:28 | PC.NURSE ---
Addendum entered by Merly Ramirez RN 02/18/25 20:30: verbal nurse to nurse report given to Carson OWEN on M5 Original Note: assumed care for pt at this time. pt sleeping in the bed in her room in no notable distress. symmetrical rise and fall of chest and unlabored respirations noted. plan of care ongoing
[2025-02-18 20:18] VITALS: BP 113/71; PULSE 85; RESP 16; TEMP 36.7; O2SAT 99
--- NOTE | 2025-02-18 23:42 | PC.ADMIT ---
Patient transferred to from ED pod around 2130 hours. Per Ed report she had presented to the ED today from her providers office (Tierney Piña MD) after reporting increasing suicidal ideation over the past few months, particularly severe the past week. On evaluation patient states feeling overwhelmed with life. She sated that she has poor sleep pattern, and usually gets 3-5 hours of sleep at home. Pt stated that PRN Xanax helps her get sleep. She endorses feeling unsupported. She stated that she takes an alcoholic drink once or twice a month. Patient stated that despite suicidal thoughts, she does not have a plan, and she denies a history of suicidal attempts. Patient mentioned having support from her spouse, however she feels that he is doing all that he is able to. Pt reports that she has depression, and has both a therapist and a psychiatrist that she sees as scheduled. Most recently she reports that she went out drinking socially with friends two nights ago and the following day she had severe suicidal and negative thoughts. 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 Pt denies drug use, endorses recent alcohol binges which seem to trigger worsening suicidal thoughts. Patient denies any pain. She was informed about available PRN medication for anxiety, but has declined any PRNs. Pt is calm and cooperative with assessment, and answers all questions. She agrees with plan of care to address suicidal ideation.
[2025-02-19 08:17] VITALS: BP 116/67; PULSE 68; RESP 18; TEMP 36.7; O2SAT 99
[2025-02-19 09:28] VITALS: BP 120/72
--- NOTE | 2025-02-19 17:19 | HO.PSYADMNOT ---
HPI Date of Service: 02/19/25 Chief Complaint: si Sources of Information: patient interviewed, chart reviewed and crisis/core team assessment reviewed HPI Subjective Notes: Conditional Voluntary Narrative: 39 yo female, lives in [place], mother of a 7 yo daughter. Patient reports a history of depression and is in regular therapy and has a psychiatrist. This is her first psychiatric admission. Patient was admitted to after she had intense suicidal ideation that were not relenting. She has struggled in the past with passive SI but never this intense. She had gone out the night before and reports she had a lot to drink. I have had hanxiety before, but never this way . She reports when she woke up was feeling acutely depressed and was having ideas of how she would end her life. 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 The thoughts were intense, intrusive, didn't jerome and scared her. She had an appointment with her psychiatrist who recommended patient come to the ED to be admitted. She feels the thoughts have gone now and even when in the ED they had subsided but she was afraid they would come back if she went back home and decided to stay. She reports multiple stressors. The last year she has been under a lot of stress at work and finally decided to resign in December. 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 She has been having discussions off and on with her psychiatrist about medication changes over the past year and they had discussed the possibility of adding Lamictal to her current regimen. She uses Xanax PRN only. [facility] report shows roughly 30 tab q 2-5 months over the past 2 years. Patient doesn't endorse clarisse history but reports she is driven, perfectionistic, has high expectations of self, and I may have burnt myself out . She also reports she feels like I am holding so much together and feels like she is the primary pin maker for her daughter as well as her who relies on her a lot. She endorses periods of internal agitation and racing thoughts. Patient says even though she drank a lot the night before her suicidal thoughts, she doesn't drink regularly once every couple of weeks and denies other substance use. UTOX was negative. She reports isolation and not a lot of family help. Past Psychiatric History: No inpatient hospitalizations. [facility] for therapy Dr. Tierney Haji psychiatrist Medical Evaluation Reviewed: Yes [facility] Family History: Younger sister with substance use disorder and many diagnoses . Social History: , mother of a 7 yo daughter, ASSISTANT [employer]AN. Substance History: Denies Trauma History: Didn't discuss but affirmed. Diagnostics Vital Signs (24Hr): Vital Signs - 24 hr 02/18/25 20:18 02/19/25 08:17 02/19/25 09:28 Temperature 98.0 F 98.1 F Pulse Rate 85 68 Respiratory Rate 16 18 Blood Pressure 113/71 116/67 120/72 Pulse Oximetry 99 99 Oxygen Delivery Method Room Air Room Air BMI result Body Mass Index 22.6 Labs 02/18/25 12:58 02/20/25 07:08 Labs: Laboratory Results - last 48 hr 02/18/25 02/18/25 02/18/25 12:58 14:17 14:18 WBC 6.0 RBC 4.03 L Hgb 12.7 Hct 36.7 L MCV 91.1 MCH 31.5 MCHC 34.6 RDW 13.0 Plt Count 266 MPV 9.3 L Immature Gran % (Auto) 0.5 H Neut % (Auto) 77.4 H Lymph % (Auto) 16.1 L [place] % (Auto) 5.5 Eos % (Auto) 0.0 Baso % (Auto) 0.5 Lymph # (Auto) 1.0 L [place] # (Auto) 0.3 Eos # (Auto) 0.0 Baso # (Auto) 0.0 Abs Immat Gran (auto) 0.03 Absolute Neuts (auto) 4.7 Absolute Nucleated RBC 0.000 Nucleated RBC % (auto) 0.0 Sodium 138 Potassium 4.1 Chloride 105 Carbon Dioxide 26 Anion Gap 11 L BUN 8 L Creatinine 0.71 Estim Creat Clear Calc 104.5 Estimated GFR > 60 Random Glucose 109 Calcium 9.5 Total Bilirubin 0.7 AST 25 ALT 34 H Alkaline Phosphatase 57 Total Protein 7.1 Albumin 4.6 Urine Color Yellow Urine Appearance Clear Urine pH >= 9.0 Ur Specific [place] 1.010 Urine Protein Negative Urine Glucose (UA) Negative Urine Ketones Negative Urine Blood Negative Urine Nitrite Negative Ur Leukocyte Esterase Large (3+) H Urine RBC 0-2 Urine WBC 6-10 H Ur Squamous Epith Cells 6-10 Urine Bacteria 3+ Hyaline Casts 0-2 Urine Test NEGATIVE Urine Opiates Screen Not Detected Ur Buprenorphine Scrn Not Detected Ur Oxycodone Screen Not Detected Urine Methadone Screen Not Detected Urine Fentanyl Screen Not Detected Ur Barbiturates Screen Not Detected Ur Phencyclidine Scrn Not Detected Ur Amphetamines Screen Not Detected U Benzodiazepines Scrn Not Detected Urine Cocaine Screen Not Detected U Marijuana (THC) Screen Not Detected Ethyl Alcohol < 10 Meds/Allergies Meds Home Medications ?Medication ?Instructions ?Recorded ?Confirmed ?Type alprazolam 0.5 mg tablet 0.5 mg PO DAILY PRN Anxiety 02/18/25 02/18/25 History fluoxetine 20 mg capsule 80 mg PO DAILY 02/18/25 02/18/25 History spironolactone 100 mg tablet 100 mg PO DAILY 02/18/25 02/18/25 History Allergies Allergies Allergy/AdvReac Type Severity Reaction Status Date / Time No Known Allergies Allergy Verified 02/18/25 12:56 Mental Status Exam Mental Status Exam Narrative: General appearance: casually appropriate dress. Good hygiene.? Eye contact: WNL. Musculoskeletal: Normal muscle strength/tone, Normal gait and station, No abnormal involuntary movements like tremors, EPS or dyskinesia. No psychomotor agitation or retardation. Normal posture.??? Manner/behavior: cooperative and not guarded Speech:? Fluent, with normal rate, tone and volume. Language: No receptive or expressive language impairment? Mood: Anxious. Affect: Depressed, tearful, congruent to mood? Thought process/associations: Linear with no flight of ideas or loose associations.?? Thought content:?No delusions or paranoia. Fearful of SI returning. Hallucinations: No auditory, visual or other hallucinations Suicidality/self-destructive behavior: Subsided. ? Homicidally/violence: none.? Reliability: good.? ? Judgment: preserved.? ? Insight: preserved Cognition: Alert and oriented to time, place and person. Attention, concentration and fund of knowledge are normal.? Impulse control and emotional regulation: preserved. Intelligence estimate: average.? Assessment & Plan Assessment & Plan (1) Depression, major, severe recurrence: Status: Acute Code(s): F33.2 - Major depressive disorder, recurrent severe without psychotic features Assessment and Plan: 39 yo female with a history of depression [place] [facility] intensifying and intrusive SI with plans to end her life that have since subsided but were unrelenting prior to admission. She has had multiple career changes. The episode happened the day after a night of heavy drinking. PLAN: - Admit to inpatient psychiatry - CV - Collateral information from family and providers. - Milieu treatment and group therapy. - Medications: Patient agrees to augmentation of Prozac with Lamotrigine. Start 25 mg daily. Discussed titration timeline and risk of Lamotrigine rash. Discussed liberalizing Xanax use while in hospital increased to BID PRN anxiety. - Social work evaluation. - Disposition planning. Discussed PHP patient reluctant at this time. Patient educated on: diagnosis and medication risk/benefits Reason for continued inpatient stay Substantial Risk for: harm to self and rapid decompensation Statement Statement: I have reviewed the history and physical and performed a pertinent examination on my patient. No changes have occurred unless specified. If the History and Physical was not performed prior to admission, the Hospitalist's service will be consulted for completing the admission physical. Time Spent With Patient Time: Total time managing care of this patient today ____ minutes.
[2025-02-19 19:48] VITALS: BP 116/84; PULSE 84; RESP 18; TEMP 36.9; O2SAT 100
[2025-02-20 08:00] VITALS: BP 108/71; PULSE 75; TEMP 36.3; O2SAT 97
[2025-02-20 08:36] LABS: Hemoglobin A1C 105.4874 umol/L; Total Hemoglobin (HGBA1C) 3351.4168 umol/L
[2025-02-20 08:50] LABS: Alanine Aminotransferase 30 U/L (0-31); Albumin Level 4.3 g/dL (3.5-5.0); Alkaline Phosphatase 52 U/L (39-117); Anion Gap 12 (12-20); Aspartate Amino Transferase 25 U/L (5-31); Blood Urea Nitrogen 13 mg/dL (9-16); Calcium 9.3 mg/dL (8.4-10.2); Carbon Dioxide 28 mmol/L (22-29); Chloride 103 mmol/L (96-108); Cholesterol 212 mg/dL (<200); Creatinine Clr Calc Pharmacy 92.7; Estimated Glomerular Filt Rate > 60; HDL Cholesterol 81 mg/dL (>40); Potassium 4.2 mmol/L (3.3-5.1); Sodium 139 mmol/L (135-145); Total Protein 6.8 g/dL (6.5-8.0); Triglycerides 59 mg/dL (<150)
[2025-02-20 09:04] LABS: Thyroid Stimulating Hormone 1.05 uIU/mL (0.32-4.0)
[2025-02-20 09:17] LABS: Folate 10.2 ng/mL (> or = 4.0); Vitamin B12 483 pg/mL (200-900)
--- NOTE | 2025-02-20 09:35 | HO.PSYCHPN ---
Subjective Subjective Date of Service: 02/20/25 Reason For Visit: SI Interim History: Patient woke up with anxiety this morning. She talked to her nurse and felt better. She says I am just feeling sad today. Has been processing her feelings and experiences. 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 Feels her family haven't been supportive. When she asked her mom to stay with her when she was feeling depressed she told her I have plans . When she babysat her daughter yesterday so her could visit she kept texting him about when is he going to be back. 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 Feels alone and unsupported. 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 Tolerating the first couple of doses of Lamictal. Review of Systems Constitutional: Reports no additional constitutional complaints, Denies chills, Denies fever(s) and Denies night sweats Eyes: Reports no additional eye complaints, Denies blurry vision, Denies change in vision, Denies diplopia, Denies eye discharge, Denies loss of vision and Denies eye pain Denies dizziness Cardiovascular: Reports no additional cardiovascular complaints, Denies chest pain, Denies lightheadedness, Denies Loss of Consciousness and Denies dyspnea Respiratory: Reports no additional respiratory complaints and Denies dyspnea Gastrointestinal: Reports no additional gastrointestinal complaints, Denies abdominal pain, Denies melena, Denies hematochezia, Denies change in bowel habits and Denies change in stool character Musculoskeletal: Reports no additional musculoskeletal complaints, Denies numbness and Denies tingling Denies dizziness, Denies loss of vision, Denies numbness and Denies tingling Psychiatric: Reports no additional psychiatric complaints, Denies homicidal ideation and Reports suicidal ideation Endocrine: Reports no additional endocrine complaints Hematologic/Lymphatic: Reports no additional hematologic/lymphatic complaints Allergic/Immunologic: Reports no additional allergic/immunologic complaints Mental Status Exam Mental Status Exam Narrative: General appearance: casually appropriate dress. Good hygiene.? Eye contact: WNL. Musculoskeletal: Normal muscle strength/tone, Normal gait and station, No abnormal involuntary movements like tremors, EPS or dyskinesia. No psychomotor agitation or retardation. Normal posture.??? Manner/behavior: cooperative and not guarded Speech:? Fluent, with normal rate, tone and volume. Language: No receptive or expressive language impairment? Mood: Anxious. Affect: Depressed, tearful, congruent to mood? Thought process/associations: Linear with no flight of ideas or loose associations.?? Thought content:?No delusions or paranoia. Fearful of SI returning. Hallucinations: No auditory, visual or other hallucinations Suicidality/self-destructive behavior: Subsided. ? Homicidally/violence: none.? Reliability: good.? ? Judgment: preserved.? ? Insight: preserved Cognition: Alert and oriented to time, place and person. Attention, concentration and fund of knowledge are normal.? Impulse control and emotional regulation: preserved. Intelligence estimate: average.? Diagnostics Vital Signs (24Hr): Vital Signs - 24 hr 02/19/25 19:48 02/20/25 08:00 Temperature 98.5 F 97.3 F Pulse Rate 84 75 Respiratory Rate 18 Blood Pressure 116/84 108/71 Pulse Oximetry 100 97 Oxygen Delivery Method Room Air Room Air BMI result Body Mass Index 22.6 Labs 02/18/25 12:58 02/20/25 07:08 Labs: Laboratory Results - last 48 hr 02/18/25 02/18/25 02/18/25 12:58 14:17 14:18 WBC 6.0 RBC 4.03 L Hgb 12.7 Hct 36.7 L MCV 91.1 MCH 31.5 MCHC 34.6 RDW 13.0 Plt Count 266 MPV 9.3 L Immature Gran % (Auto) 0.5 H Neut % (Auto) 77.4 H Lymph % (Auto) 16.1 L [place] % (Auto) 5.5 Eos % (Auto) 0.0 Baso % (Auto) 0.5 Lymph # (Auto) 1.0 L [place] # (Auto) 0.3 Eos # (Auto) 0.0 Baso # (Auto) 0.0 Abs Immat Gran (auto) 0.03 Absolute Neuts (auto) 4.7 Absolute Nucleated RBC 0.000 Nucleated RBC % (auto) 0.0 Sodium 138 Potassium 4.1 Chloride 105 Carbon Dioxide 26 Anion Gap 11 L BUN 8 L Creatinine 0.71 Estim Creat Clear Calc 104.5 Estimated GFR > 60 Random Glucose 109 Estimat Average Glucose Hemoglobin A1c % Calcium 9.5 Total Bilirubin 0.7 AST 25 ALT 34 H Alkaline Phosphatase 57 Total Protein 7.1 Albumin 4.6 Triglycerides Cholesterol LDL Cholesterol, Calc HDL Cholesterol Vitamin B12 Folate TSH Urine Color Yellow Urine Appearance Clear Urine pH >= 9.0 Ur Specific [place] 1.010 Urine Protein Negative Urine Glucose (UA) Negative Urine Ketones Negative Urine Blood Negative Urine Nitrite Negative Ur Leukocyte Esterase Large (3+) H Urine RBC 0-2 Urine WBC 6-10 H Ur Squamous Epith Cells 6-10 Urine Bacteria 3+ Hyaline Casts 0-2 Urine Test NEGATIVE Urine Opiates Screen Not Detected Ur Buprenorphine Scrn Not Detected Ur Oxycodone Screen Not Detected Urine Methadone Screen Not Detected Urine Fentanyl Screen Not Detected Ur Barbiturates Screen Not Detected Ur Phencyclidine Scrn Not Detected Ur Amphetamines Screen Not Detected U Benzodiazepines Scrn Not Detected Urine Cocaine Screen Not Detected U Marijuana (THC) Screen Not Detected Ethyl Alcohol < 10 02/20/25 07:08 WBC RBC Hgb Hct MCV MCH MCHC RDW Plt Count MPV Immature Gran % (Auto) Neut % (Auto) Lymph % (Auto) [place] % (Auto) Eos % (Auto) Baso % (Auto) Lymph # (Auto) [place] # (Auto) Eos # (Auto) Baso # (Auto) Abs Immat Gran (auto) Absolute Neuts (auto) Absolute Nucleated RBC Nucleated RBC % (auto) Sodium 139 Potassium 4.2 Chloride 103 Carbon Dioxide 28 Anion Gap 12 BUN 13 Creatinine 0.80 Estim Creat Clear Calc 92.7 Estimated GFR > 60 Random Glucose 88 Estimat Average Glucose 97 Hemoglobin A1c % 5.0 Calcium 9.3 Total Bilirubin 0.9 AST 25 ALT 30 Alkaline Phosphatase 52 Total Protein 6.8 Albumin 4.3 Triglycerides 59 Cholesterol 212 H LDL Cholesterol, Calc 120 H HDL Cholesterol 81 Vitamin B12 483 Folate 10.2 TSH 1.05 Urine Color Urine Appearance Urine pH Ur Specific [place] Urine Protein Urine Glucose (UA) Urine Ketones Urine Blood Urine Nitrite Ur Leukocyte Esterase Urine RBC Urine WBC Ur Squamous Epith Cells Urine Bacteria Hyaline Casts Urine Test Urine Opiates Screen Ur Buprenorphine Scrn Ur Oxycodone Screen Urine Methadone Screen Urine Fentanyl Screen Ur Barbiturates Screen Ur Phencyclidine Scrn Ur Amphetamines Screen U Benzodiazepines Scrn Urine Cocaine Screen U Marijuana (THC) Screen Ethyl Alcohol Medications Medications Current Medications Acetaminophen (Acetaminophen 325 Mg Tablet) 650 mg PO Q6H PRN PRN Reason: Headache/Pain, Scale 1-10 Al Hydroxide/Mg Hydroxide (Magnesium Hydrox/Alum Hydrox 30 Ml Oral.Susp) 30 ml PO Q6H PRN PRN Reason: Heartburn/Nausea Alprazolam (Alprazolam 0.5 Mg Tablet) 0.5 mg PO BID PRN PRN Reason: Anxiety Last Admin: 02/19/25 21:23 Dose: 0.5 mg Fluoxetine HCl (Fluoxetine Hcl 20 Mg Capsule) 80 mg PO DAILY [facility] Last Admin: 02/20/25 08:11 Dose: 80 mg Lamotrigine (Lamotrigine 25 Mg Tablet) 25 mg PO DAILY [facility] Last Admin: 02/20/25 08:12 Dose: 25 mg Magnesium Hydroxide (Milk Of Magnesia 30 Ml Oral.Susp) 30 ml PO DAILY PRN PRN Reason: Constipation Spironolactone (Spironolactone 25 Mg Tablet) 100 mg PO DAILY [facility]; Protocol Last Admin: 02/20/25 08:11 Dose: 100 mg Trazodone HCl (Trazodone Hcl 50 Mg Tablet) 50 mg PO BEDTIME MRX1 PRN PRN Reason: Insomnia Allergies Allergies Allergy/AdvReac Type Severity Reaction Status Date / Time No Known Allergies Allergy Verified 02/18/25 12:56 Assessment & Plan Assessment & Plan (1) Depression, major, severe recurrence: Status: Acute Code(s): F33.2 - Major depressive disorder, recurrent severe without psychotic features Assessment and Plan: 39 yo female with a history of depression presented to [facility] [place] [facility] with intensifying and intrusive SI with plans to end her life that have since subsided but were unrelenting prior to admission. She has had multiple career changes. The episode happened the day after a night of heavy drinking. PLAN: - Admit to inpatient psychiatry - CV - Collateral information from family and providers. - Milieu treatment and group therapy. - Medications: Patient agrees to augmentation of Prozac with Lamotrigine. Start 25 mg daily. Discussed titration timeline and risk of Lamotrigine rash. Discussed liberalizing Xanax use while in hospital increased to BID PRN anxiety. - Social work evaluation. - Disposition planning. Discussed PHP patient reluctant at this time. 02/20: Continue current management and treatment plan. Reason for continued inpatient stay Substantial Risk for: harm to self and rapid decompensation Time Spent With Patient Time: Total time managing care of this patient today ____ minutes.
[2025-02-20 20:00] VITALS: BP 114/66; PULSE 90; TEMP 36.9; O2SAT 99
[2025-02-21 08:23] VITALS: BP 109/72; PULSE 76; RESP 16; TEMP 36.9; O2SAT 93
--- NOTE | 2025-02-21 13:14 | HO.PSYCHPN ---
Subjective Subjective Date of Service: 02/21/25 Reason For Visit: SI Interim History: Active on unit. social with peers. Patient reports feeling good and better than admissions ; pt stated, it's been helpful not having my phone. My life doesn't feel unmanageable. Slowing down was helpful . focused on discharge; pt stated, my in-laws are visiting this week so that will be helpful . future oriented. denies SI/HI/VH/AH. Patient reports she is not interested in going to partial hospitalization because it doesn't feel nessessary . Patient reports she plans on following up with her outpatient providers. Medication Compliance: Yes Side effects from medications: No Attending Groups: Yes Mental Status Exam Mental Status Exam Narrative: Pt is alert and oriented; behavior is cooperative and calm; dressed in casual attire; mood is described as good ; eye contact appropriate; Speech is normal rate, volume and not pressured; thought process is organized; Thought content is on discharge; denies SI/HI/VH/AH. Diagnostics Vital Signs (24Hr): Vital Signs - 24 hr 02/20/25 20:00 02/21/25 08:23 Temperature 98.4 F 98.4 F Pulse Rate 90 76 Respiratory Rate 16 Blood Pressure 114/66 109/72 Pulse Oximetry 99 93 Oxygen Delivery Method Room Air Room Air BMI result Body Mass Index 22.6 Labs 02/18/25 12:58 02/20/25 07:08 Labs: Laboratory Results - last 48 hr 02/20/25 07:08 Sodium 139 Potassium 4.2 Chloride 103 Carbon Dioxide 28 Anion Gap 12 BUN 13 Creatinine 0.80 Estim Creat Clear Calc 92.7 Estimated GFR > 60 Random Glucose 88 Estimat Average Glucose 97 Hemoglobin A1c % 5.0 Calcium 9.3 Total Bilirubin 0.9 AST 25 ALT 30 Alkaline Phosphatase 52 Total Protein 6.8 Albumin 4.3 Triglycerides 59 Cholesterol 212 H LDL Cholesterol, Calc 120 H HDL Cholesterol 81 Vitamin B12 483 Folate 10.2 TSH 1.05 Medications Medications Current Medications Acetaminophen (Acetaminophen 325 Mg Tablet) 650 mg PO Q6H PRN PRN Reason: Headache/Pain, Scale 1-10 Al Hydroxide/Mg Hydroxide (Magnesium Hydrox/Alum Hydrox 30 Ml Oral.Susp) 30 ml PO Q6H PRN PRN Reason: Heartburn/Nausea Alprazolam (Alprazolam 0.5 Mg Tablet) 0.5 mg PO BID PRN PRN Reason: Anxiety Last Admin: 02/19/25 21:23 Dose: 0.5 mg Fluoxetine HCl (Fluoxetine Hcl 20 Mg Capsule) 80 mg PO DAILY [facility] Last Admin: 02/21/25 08:33 Dose: 80 mg Lamotrigine (Lamotrigine 25 Mg Tablet) 25 mg PO DAILY [facility] Last Admin: 02/21/25 08:33 Dose: 25 mg Magnesium Hydroxide (Milk Of Magnesia 30 Ml Oral.Susp) 30 ml PO DAILY PRN PRN Reason: Constipation Spironolactone (Spironolactone 25 Mg Tablet) 100 mg PO DAILY [facility]; Protocol Last Admin: 02/21/25 08:32 Dose: 100 mg Trazodone HCl (Trazodone Hcl 50 Mg Tablet) 50 mg PO BEDTIME MRX1 PRN PRN Reason: Insomnia Last Admin: 02/20/25 23:30 Dose: 50 mg Allergies Allergies Allergy/AdvReac Type Severity Reaction Status Date / Time No Known Allergies Allergy Verified 02/18/25 12:56 Assessment & Plan Assessment & Plan (1) Depression, major, severe recurrence: Status: Acute Code(s): F33.2 - Major depressive disorder, recurrent severe without psychotic features Assessment and Plan: 39 yo female with a history of depression presented to [facility] [place] with intensifying and intrusive SI with plans to end her life that have since subsided but were unrelenting prior to admission. She has had multiple career changes. The episode happened the day after a night of heavy drinking. PLAN: - Admit to inpatient psychiatry - CV - Collateral information from family and providers. - Milieu treatment and group therapy. - Medications: Patient agrees to augmentation of Prozac with Lamotrigine. Start 25 mg daily. Discussed titration timeline and risk of Lamotrigine rash. Discussed liberalizing Xanax use while in hospital increased to BID PRN anxiety. - Social work evaluation. - Disposition planning. Discussed PHP patient reluctant at this time. 02/20: Continue current management and treatment plan. 02/21: Active on unit. social with peers. Patient reports feeling good and better than admissions ; pt stated, it's been helpful not having my phone. My life doesn't feel unmanageable. Slowing down was helpful . focused on discharge; pt stated, my in-laws are visiting this week so that will be helpful . future oriented. denies SI/HI/VH/AH. Patient reports she is not interested in going to partial hospitalization because it doesn't feel nessessary . Patient reports she plans on following up with her outpatient providers. Patient educated on: diagnosis and medication risk/benefits Reason for continued inpatient stay Substantial Risk for: stable for discharge Time Spent With Patient Time: Total time managing care of this patient today _20___ minutes.
[2025-02-21 19:49] VITALS: BP 121/65; PULSE 82; TEMP 36.6; O2SAT 99
[2025-02-22 08:00] VITALS: BP 107/64; PULSE 89; RESP 18; TEMP 36.9; O2SAT 96
--- NOTE | 2025-02-22 09:13 | P.DS_ITS ---
DS: Providers Provider Date of Service: 02/22/25 Date of admission: 02/18/25 20:02 Date of discharge: 02/22/25 Primary care physician: GAIL Simpson Attending physician on admission: Yevgeniy Wharton Attending physician on discharge: Donte Donaldson Discharging clinician: Whitney Jerome DS: Diagnosis Discharge Diagnosis (1) Depression, major, severe recurrence: Status: Acute DS: Medications Discharge Medications Home Medications: Home Medications ?Medication ?Instructions ?Recorded ?Confirmed alprazolam 0.5 mg tablet 0.5 mg PO DAILY PRN Anxiety 02/18/25 02/18/25 fluoxetine 20 mg capsule 80 mg PO DAILY 02/18/2501/24 spironolactone 100 mg tablet 100 mg PO DAILY 02/18/25 02/18/25 Previous Rx's ?Medication ?Instructions ?Recorded lamotrigine 25 mg tablet 25 mg PO DAILY 7 days #7 tab s 02/21/25 trazodone 50 mg tablet 50 mg PO BEDTIME PRN Insomni a 7 02/22/25 days #7 tabs Mental Status Exam Mental Status Exam Narrative: Pt is alert and oriented; behavior is cooperative and calm; dressed in casual attire; mood is described as good ; eye contact appropriate; Speech is normal rate, volume and not pressured; thought process is organized; Thought content is on discharge; denies SI/HI/VH/AH. Data Data Completed and Pending Completed studies during hospitalization [Text1]: 02/18/25 02/18/25 02/18/25 12:58 14:17 14:18 WBC 6.0 RBC 4.03 L Hgb 12.7 Hct 36.7 L MCV 91.1 MCH 31.5 MCHC 34.6 RDW 13.0 Plt Count 266 MPV 9.3 L Immature Gran % (Auto) 0.5 H Neut % (Auto) 77.4 H Lymph % (Auto) 16.1 L [place] % (Auto) 5.5 Eos % (Auto) 0.0 Baso % (Auto) 0.5 Lymph # (Auto) 1.0 L [place] # (Auto) 0.3 Eos # (Auto) 0.0 Baso # (Auto) 0.0 Abs Immat Gran (auto) 0.03 Absolute Neuts (auto) 4.7 Absolute Nucleated RBC 0.000 Nucleated RBC % (auto) 0.0 Sodium 138 Potassium 4.1 Chloride 105 Carbon Dioxide 26 Anion Gap 11 L BUN 8 L Creatinine 0.71 Estim Creat Clear Calc 104.5 Estimated GFR > 60 Random Glucose 109 Estimat Average Glucose Hemoglobin A1c % Calcium 9.5 Total Bilirubin 0.7 AST 25 ALT 34 H Alkaline Phosphatase 57 Total Protein 7.1 Albumin 4.6 Triglycerides Cholesterol LDL Cholesterol, Calc HDL Cholesterol Vitamin B12 Folate TSH Urine Color Yellow Urine Appearance Clear Urine pH >= 9.0 Ur Specific [place] 1.010 Urine Protein Negative Urine Glucose (UA) Negative Urine Ketones Negative Urine Blood Negative Urine Nitrite Negative Ur Leukocyte Esterase Large (3+) H Urine RBC 0-2 Urine WBC 6-10 H Ur Squamous Epith Cells 6-10 Urine Bacteria 3+ Hyaline Casts 0-2 Urine Test NEGATIVE Urine Opiates Screen Not Detected Ur Buprenorphine Scrn Not Detected Ur Oxycodone Screen Not Detected Urine Methadone Screen Not Detected Urine Fentanyl Screen Not Detected Ur Barbiturates Screen Not Detected Ur Phencyclidine Scrn Not Detected Ur Amphetamines Screen Not Detected U Benzodiazepines Scrn Not Detected Urine Cocaine Screen Not Detected U Marijuana (THC) Screen Not Detected Ethyl Alcohol < 10 02/20/25 07:08 WBC RBC Hgb Hct MCV MCH MCHC RDW Plt Count MPV Immature Gran % (Auto) Neut % (Auto) Lymph % (Auto) [place] % (Auto) Eos % (Auto) Baso % (Auto) Lymph # (Auto) [place] # (Auto) Eos # (Auto) Baso # (Auto) Abs Immat Gran (auto) Absolute Neuts (auto) Absolute Nucleated RBC Nucleated RBC % (auto) Sodium 139 Potassium 4.2 Chloride 103 Carbon Dioxide 28 Anion Gap 12 BUN 13 Creatinine 0.80 Estim Creat Clear Calc 92.7 Estimated GFR > 60 Random Glucose 88 Estimat Average Glucose 97 Hemoglobin A1c % 5.0 Calcium 9.3 Total Bilirubin 0.9 AST 25 ALT 30 Alkaline Phosphatase 52 Total Protein 6.8 Albumin 4.3 Triglycerides 59 Cholesterol 212 H LDL Cholesterol, Calc 120 H HDL Cholesterol 81 Vitamin B12 483 Folate 10.2 TSH 1.05 Urine Color Urine Appearance Urine pH Ur Specific [place] Urine Protein Urine Glucose (UA) Urine Ketones Urine Blood Urine Nitrite Ur Leukocyte Esterase Urine RBC Urine WBC Ur Squamous Epith Cells Urine Bacteria Hyaline Casts Urine Test Urine Opiates Screen Ur Buprenorphine Scrn Ur Oxycodone Screen Urine Methadone Screen Urine Fentanyl Screen Ur Barbiturates Screen Ur Phencyclidine Scrn Ur Amphetamines Screen U Benzodiazepines Scrn Urine Cocaine Screen U Marijuana (THC) Screen Ethyl Alcohol 02/18/25 Unknown Urine clean catch - Clean Catch Midstream Urine Culture - Final DS: Summary Hospital Course Hospital Course: 39 yo female, lives in [place], mother of a 7 yo daughter. Patient reports a history of depression and is in regular therapy and has a psychiatrist. This is her first psychiatric admission. Patient was admitted to after she had intense suicidal ideation that were not relenting. She has struggled in the past with passive SI but never this intense. She had gone out the night before and reports she had a lot to drink. I have had hanxiety before, but never this way . She reports when she woke up was feeling acutely depressed and was having ideas of how she would end her life. 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 The thoughts were intense, intrusive, didn't jerome and scared her. She had an appointment with her psychiatrist who recommended patient come to the ED to be admitted. She feels the thoughts have gone now and even when in the ED they had subsided but she was afraid they would come back if she went back home and decided to stay. She reports multiple stressors. The last year she has been under a lot of stress at work and finally decided to resign in December. 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 She has been having discussions off and on with her psychiatrist about medication changes over the past year and they had discussed the possibility of adding Lamictal to her current regimen. She uses Xanax PRN only. [facility] report shows roughly 30 tab q 2-5 months over the past 2 years. Patient doesn't endorse clarisse history but reports she is driven, perfectionistic, has high expectations of self, and I may have burnt myself out . 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 She endorses periods of internal agitation and racing thoughts. Patient says even though she drank a lot the night before her suicidal thoughts, she doesn't drink regularly once every couple of weeks and denies other substance use. UTOX was negative. She reports isolation and not a lot of family help. 39 yo female with a history of depression presented to [facility] [place] with intensifying and intrusive SI with plans to end her life that have since subsided but were unrelenting prior to admission. She has had multiple career changes. The episode happened the day after a night of heavy drinking. PLAN: - Admit to inpatient psychiatry - CV - Collateral information from family and providers. - Milieu treatment and group therapy. - Medications: Patient agrees to augmentation of Prozac with Lamotrigine. Start 25 mg daily. Discussed titration timeline and risk of Lamotrigine rash. Discussed liberalizing Xanax use while in hospital increased to BID PRN anxiety. - Social work evaluation. - Disposition planning. Discussed PHP patient reluctant at this time. Active on unit. social with peers. Patient reports feeling good and better than admissions ; pt stated, it's been helpful not having my phone. My life doesn't feel unmanageable. Slowing down was helpful . focused on discharge; pt stated, my in-laws are visiting this week so that will be helpful . future oriented. denies SI/HI/VH/AH. Patient reports she is not interested in going to partial hospitalization because it doesn't feel nessessary . Patient reports she plans on following up with her outpatient providers. Status at Discharge Cognitive/behavioral status at discharge: Patient has insight and demonstrates good judgment in terms of wanting to pursue treatment. Patient has a safety plan that includes presenting to the closest ER or calling 911 if feeling unsafe. Functional status at discharge: independent ambulation Overall status at discharge: patient is back to baseline Time Spent with Patient Time attestation: Total time managing care of this patient today _20___ minutes. Time spent: Less than 30 minutes Discharge Plan Discharge Anticipated Discharge Date/Time: 02/22/25 11:00 Patient Disposition: Home, Self-Care Discharge Diagnosis: MDD Referrals: Psychiatry with Dr. Tierney Haji [Other] - 03/03/25 11:20 am [facility] Partial Hospitalization Program [Other] - 1 Week Referral Note: The program offers intensive group therapy, daily structure and support as a positive alternative to inpatient treatment, or to promote more rapid transition from an inpatient stay. The program is M-F 9-2 and you can call in to self refer. [facility] Community Crisis Stabilization/Respite [Other] - 1 Week Referral Note: This is a respite that offers outpt 3-5 day admissions and an alternative to inpt admissions offering a self care, mental health respite. Our [facility] program delivers services as an alternative to hospital emergency departments and psychiatric hospitalization. It also offers respite, outreach, medication management, and peer-level support to ensure that your family member is taken care of on every level. Therapy with Susan Regalado [Other] - 1 Week Referral Note: Patient will follow up with therapy to continue her weekly sessions. Gwen Burger PA [Primary Care Provider, Internal Medicine] - 1 Week Referral Note: Please make an appointment to be seen by your PCP within 1 week of hospital DC Discharge Medications: New lamotrigine 25 mg Tablet 25 mg PO DAILY 7 Days Qty: 7 1RF trazodone 50 mg Tablet 50 mg PO BEDTIME PRN (Reason: Insomnia) 7 Days Qty: 7 1RF Continued spironolactone 100 mg tablet 100 mg PO DAILY alprazolam 0.5 mg tablet 0.5 mg PO DAILY PRN (Reason: Anxiety) fluoxetine 20 mg capsule 80 mg PO DAILY Patient Comments: Spoke with provider Dr. Tierney Piña, who states she is the prescriber and has upped the dose to 80mg daily as of last month Discharge Orders: Discharge Order (Routine); Ordered 02/22/25 Ordered By: Whitney Jerome Diet: Regular diet Activity on Discharge: As tolerated Stand Alone Forms: Patient Portal Discharge page, Community Support Print Language: Croatian Care Plan Goals: Maintain mood and safe behaviors Take medications as prescribed Practice coping skills Continue with outpatient providers and reach out to them as needed Health Concerns: Mood stability and behaviors Sobriety Plan of Treatment: Follow up with your PCP, psychiatric provider and other outpatient providers regarding above concerns Take medications as prescribed Assessment: Patient has insight and demonstrates good judgment in terms of wanting to pursue treatment. Patient has a safety plan that includes presenting to the closest ER or calling 911 if feeling unsafe. Discharge Date/Time: 02/22/25 10:51
== END 2025-02-22 10:51 | disposition home or self-care (01) | DRG 751 ==
LOC: HO.ED 15:26 → HO.PM5 20:15
PROVIDERS: Physician Assistant Medical; Admitting Provider Social Worker; Emergency Provider Emergency Medicine; PCP Physician Assistant Medical; Visit Provider Social Worker
DX: F33.2 Major depressive disorder, recurrent severe without psychotic features (principal); R45.851 Suicidal ideations; Z79.899 Other long term (current) drug therapy
CPT/HCPCS: 36415; 80053; 80061; 80307; 81001; 81025; 82607; 82746; 83036; 84443; 85025; 87086; 99285; S9485

== ENCOUNTER → 2025-02-18 20:02 | Outpatient (BNV) | payer OTHER, SELFPAY | PROVIDERS: Admitting Provider Social Worker; Emergency Provider Emergency Medicine; PCP Physician Assistant Medical; Visit Provider Psychiatry & Neurology Psychiatry | DX: F33.2 Major depressive disorder, recurrent severe without psychotic features (principal) | CPT/HCPCS: 99232 ==